=== PATIENT | male | born 1980 | race Caucasian/White ===

== ENCOUNTER 2016-06-17 17:56 | Emergency (ER) | payer OTHER ==
[~2016-06-17] VITALS: Ht 177.8 cm; Wt 104.3 kg
[~2016-06-17 17:56] MED LIST: CLEOCIN HCL300 MG PO; CLINDAMYCIN HY300 MG PO; VICODIN5-300 PO
[2016-06-17 18:06] VITALS: BP 131/72
--- NOTE | 2016-06-17 18:13 | ED HEAD/FACIAL INJ COMPLAINT ---
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 Triage Nurses Notes Reviewed? yes Onset: Abrupt Severity: mild Severity Numbers: 3 Location: frontal Method of Injury: laceration Loss of Consciousness: no loss of consciousness Associated Symptoms: denies HPI: 35-year-old male presents emergency room status post sustaining a facial laceration when he states that he was cutting a tree limb and another branch fell striking him in the face. There is no loss of consciousness. He was wearing safety goggles at the time. There is no eye injury. Denies any vision changes or pain to his eye. There is no other injury is on blood thinners. No loss of consciousness. No neck or back pain headache nausea vomiting. No dental injury epistaxis. Last tetanus is unknown. Past History Travel History Traveled to [place] past 21 day No Medical History Any Pertinent Medical History? 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 No Review of Systems Review of Systems Constitutional: Reports: see HPI. All Other Systems: Reviewed and Negative Comments Review of systems: See HPI, All other systems negative. Constitutional, no chills no fever, no malaise HEENT: No visual changes no sore throat no congestion, Cardiovascular: No chest pain , no palpitation Skin, no rashes, no change in skin Respiratory: No dyspnea no cough no sputum GI: No nausea no vomiting, Muscle skeletal: No joint pain, no back pain, no neck pain, Neurologic: No numbness no confusion, no headache Psych: No stress Heme/endocrine: No bruising no bleeding Immunology: No lymphadenopathy, Physical Exam Physical Exam General Appearance: well developed/nourished, no apparent distress, alert, awake Cranial Nerves: normal hearing, normal speech, PERRL Comments: Well-developed well-nourished patient in no apparent distress. Head/Face:0.5cm skin avulsion noted to the left upper chek inferior to the eyelid. no laceration, no ecchymosis no swelling, nontender the rest of the face Are atraumatic, no facial swelling Eyes: PERRL, EOMI, no conjunctival injection. No nystagmus no subconjunctival hemorrhage Ear:External auditory canals clear, Nose: atraumatic.Normal inspection Throat: Moist mucous membranes Neck: Supple, FROM Back: FROM Cardiovascular: Regular rate and rhythms no murmurs Respiratory: No respiratory distress. Patient speaking in full complete sentences. Breath sounds clear to auscultation bilaterally: NO W/R/R Extremities: full range of motion Neuro: Alert and oriented x3 Skin: Warm & dry;No appreciable rash on exposed skin Psych: Mood affect normal, normal memory normal judgment. Diagram Head: 1) Skin avulsion as discussed above Progress Differential Diagnosis: globe injury, orbit fracture, corneal abrasion laceration avulsion Plan of Care: Current Medications Sig/Sherlyn Start time Last Medication Dose Stop Time Status Admin Tetanus/Diphtheria 0.5 ML ONCE ONE 06/17 1829 AC Toxoids Adsorbed 06/17 1830 (Decavac) Wound was thoroughly irrigated with normal saline Betadine peroxide and sterile dressing applied tetanus IM ordered discussed with patient that there is nothing I could suture at this time as tissue was missing. I discussed return precautions including signs of infection redness warm swelling fever chills he understands plan and feels comfortable at this plan cleared for discharge (REBEL OCASIO,JR) Departure Departure Time of Disposition: 1824 Disposition: HOME OR SELF CARE Condition: Stable Clinical Impression Primary Impression: Skin avulsion Secondary Impressions: Facial injury Referrals: PATIENT HAS NO PRIMARY CARE DR (PCP/Family) Additional Instructions: BACITRACIN DAILY. FOLLOW UP WITH YOUR PMD OR RETURN WITH ANY CONCERNS OR SIGNS OF INFECTION. Departure Forms: Customer Survey General Discharge Information Prescriptions: Current Visit Scripts No Known Home Medications
== END 2016-06-17 18:37 ==
LOC: ERH 17:56
DX: S01.412A Laceration without foreign body of left cheek and temporomandibular area, initial encounter (principal); S09.93XA Unspecified injury of face, initial encounter; W22.8XXA Striking against or struck by other objects, initial encounter; Y93.H2 Activity, gardening and landscaping; Y92.9 Unspecified place or not applicable
CPT/HCPCS: 90471; 90714